=== PATIENT | male | born 1955 | race Two or more races ===

== ENCOUNTER → 2016-11-24 | Outpatient (CLI) | payer BC ==
[2016-11-24 10:41] LABS: ALBUMIN 3.7 gm/dL (3.5-5.0); ALK PHOS 59 IU/L (33-138); ALT 55 IU/L (12-78); ANION GAP 12.5 (10.0-19.0); AST 34 IU/L (10-40); BLOOD UREA NITROGEN 10 mg/dL (6-24); CALCIUM 8.4 mg/dL (8.5-10.5); CHLORIDE 102 mMol/L (96-110); CO2 24 mMol/L (22-32); CREATININE 0.7 mg/dL (0.6-1.3); POTASSIUM 4.5 mMol/L (3.7-5.1); SODIUM 134 mMol/L (135-145); TOTAL BILIRUBIN 0.5 mg/dL (0.0-1.5); TOTAL PROTEIN 7.9 g/dL (6.0-8.4)
== END | disposition disaster alternative care site (69) ==
LOC: GRAD 11-21 10:00
PROVIDERS: Urology
DX: R97.20 Elevated prostate specific antigen [PSA] (principal); I70.90 Unspecified atherosclerosis; K76.0 Fatty (change of) liver, not elsewhere classified; K44.9 Diaphragmatic hernia without obstruction or gangrene; Z85.46 Personal history of malignant neoplasm of prostate; Z90.79 Acquired absence of other genital organ(s)
CPT/HCPCS: A9503; Q9967